=== PATIENT | male | born 1985 | race Caucasian/White ===

== ENCOUNTER 2016-10-31 11:12 | Emergency (ER) | payer OTHER ==
[~2016-10-31] VITALS: Ht 170.2 cm; Wt 71.2 kg
[2016-10-31 11:31] VITALS: BP 123/96
[2016-10-31] MEDS ORDERED: GLIP5TER PO (11:34)
[2016-10-31] MEDS ORDERED: METF500T2 PO (11:34)
--- NOTE | 2016-10-31 11:37 | NUR ---
Patient to bed 06.
--- NOTE | 2016-10-31 11:40 | NUR ---
BIB FAMILY FOR LOW ABD PAIN X 1 WEEK, PT. STATES HE HASNT HAD A BM IN A WEEK, DENIES NAUSEA AND VOMITING, STATES DECREASED APPETITE, SEEN BY PCP THIS AM AND WAS TOLD TO FOLLOW UP IN ER, BREATHING EVEN AND UNLABORED, AAOX4, AMBULATORY, GAIT STEADY, DENIES UTI SYMPTOMS
--- NOTE | 2016-10-31 11:48 | NUR ---
Dr. Santamaria evaluating patient at bedside.
[2016-10-31] MEDS ORDERED: KETOROLAC 60 MG/2 ML VIAL IM ONE (11:50)
--- NOTE | 2016-10-31 12:08 | NUR ---
Patient going to XRAY via [facility].
--- NOTE | 2016-10-31 12:27 | NUR ---
Patient back from XRAY via [facility].
[2016-10-31 12:38] LABS: BASOPHILS # (AUTO) 0.2 K/uL (0.00-0.22); EOSINOPHILS # (AUTO) 0.1 K/uL (0-0.4); WHITE BLOOD COUNT (AUTO) 5.8 K/uL (4.8-10.8)
[2016-10-31 12:41] LABS: BASOPHILS % (AUTO) 3.9 % (0.0-2.0); EOSINOPHILS % (AUTO) 1.4 % (0.0-4.0); HEMOGLOBIN 15.2 g/dL (12.0-18.0); LYMPHOCYTES # (AUTO) 1.9 K/uL (2.0-11.5); MEAN CORPUSCULAR HEMOGLOBIN 28 pg (27-31); MEAN CORPUSCULAR HGB CONC 34 g/dL (33-37); MEAN CORPUSCULAR VOLUME 84 fL (80-94); MONOCYTES # (AUTO) 0.8 K/uL (0.8-1.0); MONOCYTES % (AUTO) 14.2 % (1.7-9.3); NEUTROPHILS # (AUTO) 2.8 K/uL (1.8-7.7); NEUTROPHILS % (AUTO) 47.5 % (42.2-75.2); PLATELET COUNT (AUTO) 338 K/uL (140-450); RED BLOOD CELL COUNT(AUTO) 5.36 MIL/uL (4.20-6.10); RED CELL DISTRIBUTION WIDTH 11.7 % (11.6-13.7)
[2016-10-31 12:50] LABS: ANION GAP 13.1 (8-16); CALCIUM 8.6 mg/dL (8.5-10.1); CARBON DIOXIDE 27.3 mmol/L (21-32); CREATININE 0.6 mg/dL (0.6-1.3); POTASSIUM 3.4 mmol/L (3.5-5.1)
[2016-10-31 12:54] LABS: ALBUMIN 4.2 g/dL (3.4-5.0); TOTAL BILIRUBIN 0.8 mg/dL (0.0-1.0); TOTAL PROTEIN, SERUM 7.9 g/dL (6.4-8.2)
[2016-10-31 13:30] VITALS: BP 139/102
--- NOTE | 2016-10-31 13:31 | NUR ---
Patient discharged with v/s stable. Written and verbal after care instructions given and explained. Patient alert, oriented and verbalized understanding of instructions. Ambulatory with steady gait. All questions addressed prior to discharge. ID band removed. Patient advised to follow up with PMD. Rx of MOM AND COLACE given. Patient educated on indication of medication including possible reaction and side effects. Opportunity to ask questions provided and answered.
== END 2016-10-31 13:31 | disposition home or self-care (01) ==
LOC: MED 11:12
DX: K59.00 Constipation, unspecified (principal); E11.9 Type 2 diabetes mellitus without complications
CPT/HCPCS: 36415; 74022; 80053; 82948; 83690; 85025; 96372; 99284; J1885

== ENCOUNTER 2016-11-14 19:03 | Emergency (ER) | payer OTHER ==
[~2016-11-14] VITALS: Ht 167.6 cm; Wt 72.1 kg
[~2016-11-14 19:03] MED LIST: GLIP5TER PO; METF500T2 PO
[2016-11-14 19:50] VITALS: BP 129/100
[2016-11-14 20:41] LABS: BASOPHILS # (AUTO) 0.3 K/uL (0.00-0.22); EOSINOPHILS # (AUTO) 0.1 K/uL (0-0.4); EOSINOPHILS % (AUTO) 1.5 % (0.0-4.0); HEMATOCRIT 44.9 % (36-52); HEMOGLOBIN 15.2 g/dL (12.0-18.0); LYMPHOCYTES % (AUTO) 43.1 % (20.5-51.1); MEAN CORPUSCULAR HEMOGLOBIN 29 pg (27-31); MEAN CORPUSCULAR HGB CONC 34 g/dL (33-37); MEAN CORPUSCULAR VOLUME 85 fL (80-94); MONOCYTES # (AUTO) 0.6 K/uL (0.8-1.0); MONOCYTES % (AUTO) 7.8 % (1.7-9.3); NEUTROPHILS # (AUTO) 3.1 K/uL (1.8-7.7); PLATELET COUNT (AUTO) 406 K/uL (140-450); RED BLOOD CELL COUNT(AUTO) 5.27 MIL/uL (4.20-6.10); RED CELL DISTRIBUTION WIDTH 11.8 % (11.6-13.7); WHITE BLOOD COUNT (AUTO) 7.1 K/uL (4.8-10.8)
[2016-11-14 21:07] LABS: ANION GAP 12.7 (8-16); CALCIUM 9.2 mg/dL (8.5-10.1); CARBON DIOXIDE 29.2 mmol/L (21-32); CREATININE 0.7 mg/dL (0.6-1.3); POTASSIUM 3.9 mmol/L (3.5-5.1)
[2016-11-14 21:14] LABS: TOTAL BILIRUBIN 0.3 mg/dL (0.0-1.0)
--- NOTE | 2016-11-14 22:32 | NUR ---
TO ER BED 6
--- NOTE | 2016-11-14 22:33 | NUR ---
30 Y/O M W/C/O LOWER ABD PAIN AND DIARRHEA X 3 WKS AGO. DENIES N/V. PT STATES HE STILL HAVING DIARRHEA WHICH APPEARS BLACK. LAST BM THIS MORNING. ER NOTIFIED.
--- NOTE | 2016-11-14 23:05 | NUR ---
PT RESTING IN BED. NO S/S OF DISTRESS NOTED AT THE MOMENT.
[2016-11-14] MEDS ORDERED: KETOROLAC 60 MG/2 ML VIAL IM ONE (23:40)
[2016-11-15 00:04] VITALS: BP 132/92
--- NOTE | 2016-11-15 00:04 | NUR ---
Patient discharged with v/s stable. Written and verbal after care instructions given and explained. Patient alert, oriented and verbalized understanding of instructions. Ambulatory with steady gait. All questions addressed prior to discharge. ID band removed. Patient advised to follow up with PMD THIS WK OR RETURN TO ER IF CONDITION WORSENS. Rx of NORCO given. Patient educated on indication of medication including possible reaction and side effects. Opportunity to ask questions provided and answered.
== END 2016-11-15 00:04 | disposition home or self-care (01) ==
LOC: MED 19:03
DX: R10.32 Left lower quadrant pain (principal); E11.9 Type 2 diabetes mellitus without complications
CPT/HCPCS: 36415; 74176; 80053; 83690; 85025; 96372; 99285; J1885